=== PATIENT | female | born 1955 | race Hispanic/Latino ===

== ENCOUNTER 2020-01-15 09:35 | Emergency (ER) | payer SELFPAY ==
[~2020-01-15] VITALS: Ht 147.3 cm; Wt 50.8 kg
[2020-01-15] MEDS ORDERED: PANTOPRAZOLE 40 MG 10ML VIAL IV STA (09:54)
[2020-01-15] MEDS ORDERED: SODIUM CHLORIDE 0.9% 1000ML 1,000 ML IV STA ×3 (09:54→15:32)
[2020-01-15] MEDS ORDERED: ONDANSETRON HCL INJ 2MG/ML 2ML 2 MG/ML VIAL IV STA (09:54)
[2020-01-15 10:09] LABS: BASOPHILS % 0.1 % (0.0-1.0); HEMATOCRIT 47.1 % (34.2-44.1); HEMOGLOBIN 16.9 g/dL (12.0-16.0); LYMPHOCYTES # (AUTO) 0.7 (1.0-3.2); LYMPHOCYTES % 10.6 % (18.0-39.1); MEAN CORPUSCULAR HEMOGLOBIN 38.4 pg (28-32); MEAN CORPUSCULAR HGB CONC 35.9 g/dL (31-35); MONOCYTES # (AUTO) 0.8 (0.2-0.8); MONOCYTES % 12.2 % (4.4-11.3); NEUTROPHILS # (AUTO) 5.2 (2.1-6.9); NEUTROPHILS % 76.5 % (38.7-80.0); PLATELET COUNT 160 x10e3/uL (140-360); RED CELL DISTRIBUTION WIDTH 12.4 % (11.7-14.4)
[2020-01-15] MEDS ORDERED: LABETALOL HCL 5 MG/ML 20ML VIAL IV STA (10:24)
[2020-01-15 10:30] LABS: CLARITY,URINE CLEAR (CLEAR); COLOR,URINE YELLOW (YELLOW)
[2020-01-15 10:31] LABS: BILIRUBIN,URINE MODERATE (NEGATIVE); KETONES,URINE 3+ (NEGATIVE); LEUKOCYTE ESTERASE ,URINE NEGATIVE (NEGATIVE); NITRITE,URINE NEGATIVE (NEGATIVE); PROTEIN,URINE DIPSTICK 2+ (NEGATIVE); URINE UROBILINOGEN 1 mg/dL (0.2 - 1)
[2020-01-15 10:38] LABS: ALBUMIN 4.9 g/dL (3.5-5.0); ALBUMIN/GLOBULIN RATIO 1.4 (0.8-2.0); ANION GAP 23.5 mmol/L (8-16); CALCIUM 10.1 mg/dL (8.4-10.2); CREATININE, SERUM 1.37 mg/dL (0.57-1.11); MAGNESIUM 2.4 MG/DL (1.3-2.1); POTASSIUM 3.5 mmol/L (3.5-5.1)
[2020-01-15 10:44] LABS: CREATINE KINASE MB 3.5 ng/mL (0-5.0)
[2020-01-15 10:56] LABS: BACTERIA,URINE FEW /HPF; EPITHELIAL CELLS,URINE FEW /LPF; RBC,URINE 0-5 /HPF (0-5); WBC,URINE (MAN) 0-5 /HPF (0-5)
[2020-01-15 11:09] LABS: INR 0.9; PROTHROMBIN TIME 12.7 seconds (11.9-14.5)
[2020-01-15 11:10] LABS: PARTIAL THROMBOPLASTIN TIME 23.4 seconds (23.8-35.5)
[2020-01-15] MEDS ORDERED: DIATRIZOATE MEGL/DIATRIZOA SOD 30 ML BTL PO ONE (11:22)
--- NOTE | 2020-01-15 11:53 | Diagnostic Imaging Report ---
EXAM: CHEST SINGLE (PORTABLE) DATE: 01/15/2020 9:54 AM INDICATION: Nausea, vomiting, diarrhea COMPARISON: None FINDINGS: The trachea is midline. The lungs are symmetrically expanded without evidence for large focal consolidation, pneumothorax, or significant pleural effusion. The cardiomediastinal silhouette and pulmonary vasculature are within normal limits. No acute osseous abnormality is identified. The surrounding soft tissues are unremarkable. IMPRESSION: No acute cardiopulmonary process identified. Signed by: Dr. Jaquan Dye MD on 01/15/2020 11:49 AM
[2020-01-15] MEDS ORDERED: SODIUM CHLORIDE 0.9% 50ML 50 ML ONE (12:52)
[2020-01-15] MEDS ORDERED: IOPAMIDOL 370 MG/ML 200 ML INFUS..BTL INJ ONE (12:53)
--- NOTE | 2020-01-15 13:20 | Diagnostic Imaging Report ---
CT of the abdomen and pelvis, with contrast. History: Abdominal pain, Nausea, vomiting, diarrhea. Comparison: None available. Technique: Multidetector CT scanning of the abdomen and pelvis was performed from the level of the lung bases to the inferior pubic rami after intravenous and oral administration of contrast. Coronal and sagittal multiplanar reformations were obtained. RADIATION DOSE: Total DLP: 188.76 mGy*cm Dose modulation, iterative reconstruction, and/or weight based adjustment of the mA/kV was utilized to reduce the radiation dose to as low as reasonably achievable. FINDINGS: The visualized lungs are unremarkable. The imaged portion of the heart demonstrates no significant abnormalities. The visualized bilateral breast prostheses noted. The liver is normal in size. The liver appears diffusely decreased in attenuation in comparison to the spleen which may reflect fatty infiltration. No focal hepatic abnormality is identified. The gallbladder is unremarkable. There is no biliary ductal dilatation. The stomach, spleen, pancreas, and bilateral adrenal glands are unremarkable. The kidneys are normal in size and location and enhance symmetrically. There is no evidence for hydronephrosis. No ureteral dilatation or stone is identified. The urinary bladder demonstrates no significant abnormalities. The uterus is surgically absent. No abnormal adnexal masses are identified. The abdominal aorta is normal course and caliber with atherosclerotic calcifications. The IVC is unremarkable. The visualized loops of small and large bowel demonstrate no evidence of obstruction or inflammation. The appendix is visualized and appears unremarkable. There is no ascites or intraperitoneal free air. No abnormally enlarged lymph nodes are identified within the abdomen or pelvis. The osseous structures demonstrate no evidence for acute fracture or destructive process. The extraperitoneal soft tissues are unremarkable. IMPRESSION: No acute abdominopelvic process identified. Signed by: Dr. Jaquan Dye MD on 01/15/2020 1:17 PM
[2020-01-15 13:40] LABS: SALICYLATE < 5.0 mg/dL (0-30)
[2020-01-15 18:14] LABS: ALANINE AMINOTRANSFERASE 51 IU/L (0-55); ALBUMIN 3.3 g/dL (3.5-5.0); ALBUMIN/GLOBULIN RATIO 1.4 (0.8-2.0); ALKALINE PHOSPHATASE 52 IU/L (40-150); BLOOD UREA NITROGEN 21 mg/dL (7-26); BUN/CREATININE RATIO 28 (6-25); CALCIUM 7.7 mg/dL (8.4-10.2); CARBON DIOXIDE 16 mmol/L (22-29); CHLORIDE 108 mmol/L (98-107); CREATININE, SERUM 0.74 mg/dL (0.57-1.11); EST GLOMERULAR FILTRATION RATE > 60 ML/MIN (60-); GLUCOSE 110 mg/dL (74-118); SODIUM 134 mmol/L (136-145)
--- NOTE | 2020-01-15 18:23 | NUR ---
REPORT FROM FABRICIO LEDEZMA PT IS RESTING AND DRINKING WATER, PT VOICES NO COMPLAINTS AT THIS TIME, VITAL SIGNS STABLE, PT UNDERSTANDS POC,
[2020-01-15 18:55] VITALS: BP 166/73
[2020-02-03 07:21] LABS: ABG PH 7.32 (7.35-7.45)
[2020-02-03 07:22] LABS: ABG HCO3 14 mmol/L (21-29); ABG PCO2 27 mmHg (35-45)
[2020-02-06 09:11] LABS: ABG PO2 99 mmHg (80-90)
== END 2020-01-15 18:58 | disposition home or self-care (01) ==
LOC: ER 09:35
DX: R10.32 Left lower quadrant pain (principal); R11.2 Nausea with vomiting, unspecified; R19.7 Diarrhea, unspecified; E13.10 Other specified diabetes mellitus with ketoacidosis without coma
CPT/HCPCS: 36415; 36600; 71045; 74177; 80053; 80320; 80329; 81001; 82550; 82553; 82805; 82948; 83605; 83690; 83735; 84484; 85025; 85610; 85730; 87086; 99284; C9113; J2405; J3490; J7030; Q9967